=== PATIENT | female | born 1955 | race Caucasian/White ===

== ENCOUNTER 2020-10-03 15:39 | Observation (INO) | payer MEDICARE ==
[~2020-10-03] VITALS: Ht 154.9 cm; Wt 49.9 kg
[2020-10-03 16:36] LABS: HEMOGLOBIN 12.6 gm/dl (12.3-15.3); RED BLOOD COUNT 4.4 M/UL (4.00-5.10); WHITE BLOOD COUNT 9.4 K/UL (4.5-11.0)
[2020-10-03 17:00] LABS: BUN/CREATININE RATIO 20 (0-10)
[2020-10-04] MEDS ORDERED: XANAX1 MG PO (05:01)
[2020-10-04] MEDS ORDERED: NEURONTIN800 MG PO (05:01)
[2020-10-04] MEDS ORDERED: AMLODIPINE BESY10 MG PO (05:02)
[2020-10-04] MEDS ORDERED: HYDROCODON-ACE1 EAC3 PO (05:02)
[2020-10-04] MEDS ORDERED: PAXIL40 MG PO (05:03)
[2020-10-04] MEDS ORDERED: LEVOTHYROXINE100 MC2 PO (05:03)
[2020-10-05] MEDS ORDERED: AUGMENTIN 875-1 EACH PO (11:46)
== END 2020-10-05 13:30 | disposition home or self-care (01) ==
LOC: ER1 15:39 → CDU 20:19 → MED SURG 4 10-04 17:19
PROVIDERS: Student in an Organized Health Care Education/Training Program; ADMIT Internal Medicine
DX: R41.0 Disorientation, unspecified (principal); R82.5 Elevated urine levels of drugs, medicaments and biological substances; I10 Essential (primary) hypertension; F41.9 Anxiety disorder, unspecified; F32.9 Major depressive disorder, single episode, unspecified; G62.9 Polyneuropathy, unspecified; E03.9 Hypothyroidism, unspecified; I97.2 Postmastectomy lymphedema syndrome; Z85.3 Personal history of malignant neoplasm of breast; Z90.12 Acquired absence of left breast and nipple; Z79.899 Other long term (current) drug therapy; Z20.822 Contact with and (suspected) exposure to COVID-19; Y83.8 Other surgical procedures as the cause of abnormal reaction of the patient, or of later complication, without mention of misadventure at the time of the procedure
CPT/HCPCS: 0240U; 36415; 70450; 70551; 71045; 80053; 80307; 81001; 82140; 82550; 82553; 82607; 82746; 83874; 83921; 84484; 85025; 85610; 85730; 93005; 96365; 96366; 96372; 99285; G0378; G0480; J0696; J1650; J7030

== ENCOUNTER → 2020-11-08 | Outpatient (CLI) | payer MEDICARE ==
[~2020-11-08] MED LIST: AMLODIPINE BESY10 MG PO; AUGMENTIN 875-1 EACH PO; HYDROCODON-ACE1 EAC3 PO; LEVOTHYROXINE100 MC2 PO; NEURONTIN800 MG PO; PAXIL40 MG PO; XANAX1 MG PO
== END ==
LOC: HEART 5 14:58
DX: R01.1 Cardiac murmur, unspecified (principal); R93.1 Abnormal findings on diagnostic imaging of heart and coronary circulation
CPT/HCPCS: 93306